=== PATIENT | female | born 1945 | race Caucasian/White ===

== ENCOUNTER 2017-03-21 11:17 | Day surgery (SDC) | payer MEDICARE, OTHER ==
[2017-03-13 10:54] LABS: HEMATOCRIT 40.7 % (36.0-48.0); HEMOGLOBIN 13.5 g/dL (12.0-16.0)
[2017-03-13 11:07] LABS: BUN (BLOOD UREA NITROGEN) 11 MG/DL (6-23); CHLORIDE, SERUM 105 MMOL/L (96-112); CO2 (CARBON DIOXIDE) 30 MMOL/L (24-34); CREATININE 0.77 MG/DL (0.55-1.02); GFR AFRICAN AMERICAN 91 ML/MIN (>=60); GFR NON AFRICAN AMERICAN 78 ML/MIN (>=60); GLUCOSE, SERUM 97 MG/DL (60-99); POTASSIUM, SERUM 3.8 MMOL/L (3.5-5.3); SODIUM, SERUM 142 MMOL/L (135-148)
--- NOTE | ~2017-03-21 | OP ---
Record Of Operation [facility] [address] [place]. 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 NAME OF PROCEDURE: Laparoscopic partial cecectomy. SURGEON: Manuel Castro MD RESIDENT: Dr. Brito. ANESTHESIA: General. ESTIMATED BLOOD LOSS: 10 mL. INDICATION: The patient is a 72-year-old female who underwent colonoscopy and was found to have a sessile serrated adenoma at the appendiceal orifice. Resection was offered to her. The risks including but not limited to bleeding, infection, damage to adjacent organs, need for open operation, need for resection, recuperation among others were discussed with her, and she agreed to proceed. DESCRIPTION OF PROCEDURE: The patient was taken to the operating room and placed in supine position. General anesthesia was induced and the abdomen was prepped and draped sterilely. A small incision was made in the umbilicus and Shyann technique was utilized to place a 12 mm trocar. Air insufflation was obtained to 15 mmHg, and under direct vision, suprapubic and right upper quadrant 5 mm trocars were placed. There was some mild adhesions in the right lower quadrant, which were taken down, and the cecum was mobilized up. The appendix was surgically absent, but the area where the base of the appendix has been was clearly visible and cautery was used to clear the area of mesentery, and then an [place] stapler was placed x3 across the cecum, taking care to avoid obstructing the terminal ileum and this resulted in removing the cecum. The cecum was then brought out through the umbilical port site and the area was checked for hemostasis, which was complete. The pathologist opened the specimen and the polyp was identified and the margins were grossly negative. The pneumoperitoneum was evacuated. The umbilical incision was closed with 0 Vicryl at the fascia layer and the skin was closed at the 5 mm port sites with 4-0 Monocryl. Dressings were applied. She tolerated the procedure well. STEPH/HARVEY Manuel Castro M.D. Record Of Operation [address] [address] NAME: SHASHA ISRAEL : 49 STATUS : DIS IN PAT#: [id number] AGE: 72 ADM/REG DATE : 03/21/17 MR#: [id number] REPORT SERV DATE: 03/22/17 DICTATED BY: LINDA CASTRO DATE: 03/21/17 REPORT STATUS : Draft TRANSCRIBED BY: HARVEY DATE: 03/21/17 / [id number] CC: Chiara Barclay M.D. Michael Goodman, M.D.
[~2017-03-21 11:17] MED LIST: CRESTOR5 MG PO; CYMBALTA30 PO; CYMBALTA60 PO; DIOVAN HC1 PO; FLEX PO; LEVOTHYROXIN75 MCG PO; LEVOTHYROXIN88 MCG PO; NORCO1 TA2 PO; NORV5 PO; PROZ10 PO
== END 2017-03-21 19:45 | disposition home or self-care (01) ==
LOC: SDC 11:17
PROVIDERS: Colon & Rectal Surgery
PROC: 0DBH4ZZ Excision of Cecum, Percutaneous Endoscopic Approach (ICD-10-PCS; principal; 2017-03-21 13:15)
DX: D12.0 Benign neoplasm of cecum (principal); I10 Essential (primary) hypertension; E03.9 Hypothyroidism, unspecified; M19.90 Unspecified osteoarthritis, unspecified site; M79.7 Fibromyalgia; K57.92 Diverticulitis of intestine, part unspecified, without perforation or abscess without bleeding; K21.9 Gastro-esophageal reflux disease without esophagitis; Z79.899 Other long term (current) drug therapy; Z87.891 Personal history of nicotine dependence; Z90.49 Acquired absence of other specified parts of digestive tract; Z90.710 Acquired absence of both cervix and uterus; Z98.51 Tubal ligation status; Z98.890 Other specified postprocedural states
CPT/HCPCS: 80048; 85014; 85018; 88307; 88309; 93005; A9270-GY; J0690; J2250; J2370; J2405; J2710; J2795; J3010